=== PATIENT | female | born 1960 | race Caucasian/White ===

== ENCOUNTER 2022-05-07 15:49 | Emergency (ER) | payer BC ==
[~2022-05-07] VITALS: Ht 162.6 cm; Wt 108.9 kg
[2022-05-07 15:50] VITALS: BP_SYST 165
--- NOTE | 2022-05-07 16:32 | NUR ---
Patient to ER bed H2 to gown for evaluation. Side rails up. Report given to TAWANNA WOODS.
--- NOTE | 2022-05-07 16:32 | NUR ---
PT CAME IN WITH FROM HOME C/O STOPPING RX LYRICA, ROBAXIN AND BACLOFEN 2 WEEKS AGO. SINCE SHE HAS BEEN HAVING SEVERE ANXIETY AND TROUBLE SLEEPING. PT IS TEARFUL AND STATES SHE DIDN'T KNOW HER MEDICATIONS WERE CONTROLLED SUBSTANCES. PT IS AMBULATORY, AAOX4, VSS
[2022-05-07] MEDS ORDERED: LORazepam 1 MG TABLET PO ONE (16:45)
--- NOTE | 2022-05-07 16:56 | NUR ---
MEDICATED ORDERED, EKG IN PROGRESS.
[2022-05-07 17:13] LABS: BASOPHILS # (AUTO) 0.1 K/uL (0.0-0.2); BASOPHILS % (AUTO) 0.9 % (0.0-2.0); EOSINOPHILS # (AUTO) 0.2 K/uL (0.0-0.4); EOSINOPHILS % (AUTO) 1.6 % (0.0-4.0); HEMATOCRIT 42.4 % (36-48); HEMOGLOBIN 14.3 g/dL (12.0-16.0); LYMPHOCYTES % (AUTO) 20.4 % (20.5-51.5); MEAN CORPUSCULAR HEMOGLOBIN 28 pg (27-31); MEAN CORPUSCULAR HGB CONC 34 % (32-36); MEAN CORPUSCULAR VOLUME 83 fL (79.0-98.0); MONOCYTES # (AUTO) 0.6 K/uL (0.0-1.0); MONOCYTES % (AUTO) 6.3 % (1.7-9.3); NEUTROPHILS # (AUTO) 6.9 K/uL (1.8-7.7); NEUTROPHILS % (AUTO) 70.8 % (40.0-70.0); PLATELET COUNT (AUTO) 311 K/uL (130-430); RED BLOOD CELL COUNT(AUTO) 5.08 MIL/uL (4.2-6.2); RED CELL DISTRIBUTION WIDTH 14.4 % (9.0-15.0); WHITE BLOOD COUNT (AUTO) 9.8 K/uL (4.8-10.8)
[2022-05-07 17:23] LABS: ANION GAP 9 (5-15); CHLORIDE 102 mmol/L (98-107); CREATININE 0.64 mg/dL (0.55-1.30); GLUCOSE 91 mg/dL (70-99); UREA NITROGEN, BLOOD 9 mg/dL (8-21)
[2022-05-07 17:25] LABS: GFR AFRICAN AMERICAN 122 mL/min (>90)
[2022-05-07 17:30] LABS: ALANINE AMINOTRANSFERASE 33 U/L (12-78); ALBUMIN 3.4 g/dL (3.4-4.8); ASPARTATE AMINOTRANSFERASE 19 U/L (10-37); TOTAL BILIRUBIN 0.7 mg/dL (0.0-1.0)
[2022-05-07 17:36] LABS: BILIRUBIN,URINE NEGATIVE (NEGATIVE); BLOOD, URINE NEGATIVE (NEGATIVE); CLARITY/URINE CLEAR (CLEAR); COLOR,URINE YELLOW (YELLOW); GLUCOSE,URINE NEGATIVE (NEGATIVE); KETONES,URINE NEGATIVE (NEGATIVE); LEUKOCYTE ESTERASE ,URINE NEGATIVE (NEGATIVE); NITRITE, URINE NEGATIVE (NEGATIVE); PH,URINE 5.5 (5.0-8.0); PROTEIN URINE NEGATIVE (NEGATIVE); UROBILINOGEN,URINE 0.2 (0.2-1.0)
--- NOTE | 2022-05-07 18:14 | NUR ---
Patient given written and verbal discharge instructions and verbalizes understanding. ER MD discussed with patient the results and treatment provided. Patient in stable condition. ID arm band removed. Patient educated on pain management and to follow up with PMD. Pain Scale . Opportunity for questions provided and answered.
[2022-05-07 18:16] VITALS: BP_SYST 151
== END 2022-05-07 18:16 | disposition home or self-care (01) ==
LOC: SED 15:49
DX: R20.2 Paresthesia of skin (principal); F41.9 Anxiety disorder, unspecified; G47.00 Insomnia, unspecified; Z79.899 Other long term (current) drug therapy
CPT/HCPCS: 36415; 71045; 80053; 81003; 84484; 85025; 93005; 99285

== ENCOUNTER 2022-05-09 08:41 | Emergency (ER) | payer BC ==
[~2022-05-09] VITALS: Ht 170.2 cm; Wt 108.9 kg
--- NOTE | 2022-05-09 08:50 | NUR ---
DR CHAPA AT BEDSIDE FOR EVALUATION
[2022-05-09 09:15] VITALS: BP_SYST 140
--- NOTE | 2022-05-09 09:19 | NUR ---
RECEIVED REPORT FROM CHUCK AND WILL ASSUME CARE. PT COMPLAINS OF ALL OVER BODY PAIN, STATES IT FEELS LIKE ELECTRICAL SHOCKS IN BODY. STATES SHE HAS BEEN SEEING A SHIPPING CLERK/ADMIN AND NO DX YET. CHRONIC LOWER BACK PAIN.
[2022-05-09 09:57] LABS: BASOPHILS # (AUTO) 0.1 K/uL (0.0-0.2); BASOPHILS % (AUTO) 0.9 % (0.0-2.0); EOSINOPHILS % (AUTO) 0.5 % (0.0-4.0); HEMATOCRIT 43.9 % (36-48); HEMOGLOBIN 14.7 g/dL (12.0-16.0); LYMPHOCYTES # (AUTO) 1.1 K/uL (1.0-5.5); LYMPHOCYTES % (AUTO) 13.8 % (20.5-51.5); MEAN CORPUSCULAR HEMOGLOBIN 28 pg (27-31); MEAN CORPUSCULAR HGB CONC 33 % (32-36); MEAN CORPUSCULAR VOLUME 84 fL (79.0-98.0); MONOCYTES # (AUTO) 0.4 K/uL (0.0-1.0); MONOCYTES % (AUTO) 5.3 % (1.7-9.3); NEUTROPHILS # (AUTO) 6.2 K/uL (1.8-7.7); NEUTROPHILS % (AUTO) 79.5 % (40.0-70.0); PLATELET COUNT (AUTO) 327 K/uL (130-430); RED BLOOD CELL COUNT(AUTO) 5.26 MIL/uL (4.2-6.2); RED CELL DISTRIBUTION WIDTH 14.3 % (9.0-15.0); WHITE BLOOD COUNT (AUTO) 7.8 K/uL (4.8-10.8)
--- NOTE | 2022-05-09 09:58 | NUR ---
PT MEDICATED ORDERED. FAMILY AT BEDSIDE FOR SUPPORT
[2022-05-09 10:09] LABS: CALCIUM 8.7 mg/dL (8.4-11.0); CREATININE 0.82 mg/dL (0.55-1.30)
[2022-05-09 10:15] LABS: ALBUMIN 3.4 g/dL (3.4-4.8)
[2022-05-09] MEDS: LORazepam 2 MG/ML VIAL IM ONE (10:18)
[2022-05-09] MEDS: KETOROLAC TROMETHAMINE 60 MG/2 ML VIAL IM ONE (10:19)
--- NOTE | 2022-05-09 10:25 | NUR ---
PT STATES SLIGHT RELIEF, DR CHO NOTIFIED.
[2022-05-09] MEDS ORDERED: HYDR-3927 PO (10:58)
[2022-05-09] MEDS ORDERED: ONDA-8 TL (11:22)
--- NOTE | 2022-05-09 11:23 | NUR ---
Patient given written and verbal discharge instructions and verbalizes understanding. ER MD discussed with patient the results and treatment provided. Patient in stable condition. ID arm band removed. Rx of DARIUSZ CHINCHILLA given. Patient educated on pain management and to follow up with PMD. Pain Scale 0/10. Opportunity for questions provided and answered. Medication side effect fact sheet provided.
--- NOTE | 2022-05-09 11:23 | NUR ---
Denise nicolemark in [facility] - 05/09/22 at 1123 by SDEDLLC D
== END 2022-05-09 11:23 | disposition home or self-care (01) ==
LOC: SED 08:41
DX: M54.50 Low back pain, unspecified (principal); G89.29 Other chronic pain; Z88.2 Allergy status to sulfonamides; Z79.899 Other long term (current) drug therapy
CPT/HCPCS: 99284; 80053; 82550; 85025; 36415; 96372; J1885; J2060